=== PATIENT | female | born 1965 | race Caucasian/White ===

== ENCOUNTER 2020-01-01 14:17 | Emergency (ER) | payer OTHER ==
[~2020-01-01] VITALS: Ht 170.2 cm; Wt 104.3 kg
--- NOTE | 2020-01-01 15:28 | NUR ---
Patient awake alert non distress noted on the phone talking to family .
--- NOTE | 2020-01-01 16:17 | NUR ---
Patient awake alert non distress noted patient able to ambulated she called her friend to pick her up ,i removed heplock from Left hand noted cath intact ,no edema , no pain .
[2020-01-01 16:18] VITALS: BP 145/89
--- NOTE | 2020-01-01 16:19 | NUR ---
Patient discharged to home in stable condition. Written and verbal after care instructions given. Patient verbalizes understanding of instruction.
--- NOTE | 2020-01-01 16:32 | NUR ---
Her friend Phil will [pick her up .
== END 2020-01-01 16:33 | disposition home or self-care (01) ==
LOC: ER 14:26
DX: T40.601A Poisoning by unspecified narcotics, accidental (unintentional), initial encounter (principal); Z59.0 Homelessness; Y92.89 Other specified places as the place of occurrence of the external cause

== ENCOUNTER 2020-12-11 04:50 | Emergency (ER) | payer OTHER ==
[~2020-12-11] VITALS: Ht 170.2 cm; Wt 77.1 kg
[2020-12-11 05:08] VITALS: BP 162/98
--- NOTE | 2020-12-11 06:18 | NUR ---
pt did not want to wait for her discharge papers. Patient discharged to home in stable condition. verbal after care instructions given. Patient verbalizes understanding of instruction.
== END 2020-12-11 06:22 | disposition home or self-care (01) ==
LOC: ER 04:50
DX: J40 Bronchitis, not specified as acute or chronic (principal); F17.200 Nicotine dependence, unspecified, uncomplicated; Z59.0 Homelessness
CPT/HCPCS: 71045-TC

== ENCOUNTER 2021-07-29 07:58 | Emergency (ER) | payer OTHER ==
[~2021-07-29] VITALS: Ht 170.2 cm; Wt 79.4 kg
--- NOTE | 2021-07-29 08:10 | NUR ---
BIBA FOR c/o cough, headache and runny nose x 4 days. Pt a/ox4 no SOB or unlabored breathing. VS WNL. PT currently receiving breathing treatment
--- NOTE | 2021-07-29 08:20 | NUR ---
RT at bedside. pt receiving breathing treatment
[2021-07-29] MEDS ORDERED: IPRATROPIUM NEB FS 0.5 MG/2.5 ML AMPUL.NEB NEB ONE (08:30)
[2021-07-29] MEDS ORDERED: ALBUTEROL FS 2.5 MG/3 ML VIAL.NEB NEB ONE (08:30)
[2021-07-29] MEDS ORDERED: ALBUTEROL FS 2.5 MG/3 ML VIAL.NEB ONE (08:34)
[2021-07-29] MEDS ORDERED: IPRATROPIUM NEB FS 0.5 MG/2.5 ML AMPUL.NEB ONE (08:34)
[2021-07-29] MEDS ORDERED: PRED50TA PO (09:05)
[2021-07-29] MEDS ORDERED: ALBU8.5H8 INH (09:05)
--- NOTE | 2021-07-29 09:13 | NUR ---
pt d/c. Explained prescribed meds, and preferred pharmacy. no sob or labored breathing. VS WNL.
[2021-07-29 09:53] VITALS: BP 144/88
== END 2021-07-29 10:07 | disposition home or self-care (01) ==
LOC: ER 07:58
DX: J40 Bronchitis, not specified as acute or chronic (principal); F17.200 Nicotine dependence, unspecified, uncomplicated; Z59.00 Homelessness unspecified; Z79.899 Other long term (current) drug therapy
CPT/HCPCS: 71045-TC; 94799-TC